=== PATIENT | male | born 1965 | race Caucasian/White ===

== ENCOUNTER 2016-10-12 13:16 | Inpatient (IN) | payer BC ==
[~2016-10-12] VITALS: Ht 182.9 cm; Wt 73.2 kg
--- NOTE | ~2016-10-12 | PR ---
[place], [place] PROGRESS NOTE [id number] UNIT #: [id number] ROOM: 408 DOCTOR: CATRACHITO WALLS MD BIRTHDATE: [birth year] DOS: 10/13/2016 SUBJECTIVE: The patient without anymore complaints of chest pains. OBJECTIVE: VITAL SIGNS: Blood pressure of 138/72, heart rate of 69 beats per minute, breathing 20 times per minute, temperature 98 degrees Fahrenheit. GENERAL APPEARANCE: The patient is alert and oriented x 3, in no visible distress. HEENT AND NECK: Exam within normal limits. CARDIOVASCULAR SYSTEM: Heart rate is regular in rate and rhythm. S1 and S2 normally audible. LUNGS: Clear to auscultation. ABDOMEN: Soft, nontender. No obvious organomegaly. Bowel sounds are present. EXTREMITIES: Without significant cyanosis or edema. IMPRESSION: 1. The patient for cardiac stress testing today. All his cardiac enzymes were normal. No complaints of chest pains. The patient remains on the rn family practice. 2. Bronchial asthma and acute asthmatoid wheezing and some shortness of breath for which he is being treated with Symbicort and azithromycin. CATRACHITO WALLS MD CM:ENRICO 2 21 CATRACHITO WALLS MD 10/13/161919 interface
--- NOTE | ~2016-10-12 | WRIGHTHP ---
[place], [place] PATIENT HISTORY AND PHYSICAL EXAM NAME: FRANNY MAJOR [facility] #: [id number] UNIT #: [id number] ROOM: 408 DOCTOR: CATRACHITO WALLS MD BIRTHDATE: [birth year] DOS: 10/12/2016 HISTORY OF PRESENT ILLNESS: The patient is a 51-year-old gentleman with a past medical history of bronchial asthma and nasal polyps. The patient presented to the Emergency Department with recurrent complaints of left-sided chest pain lasting for about half an hour and going away on its own. The patient presently has some slight discomfort in the left chest. No dizziness or palpitation, no nausea, vomiting or sweating. No fainting episodes. The patient has no previous history of coronary artery disease or [place] and no history of any coronary artery disease at an early age in his family, but his mother does have coronary artery disease which started later in her life. REVIEW OF SYSTEMS: LUNGS: History of bronchial asthma and wheezing, recurrent. GASTROINTESTINAL: No nausea, vomiting, diarrhea, constipation. CARDIOVASCULAR: Chest pains, other than that, no palpitations. ALLERGIES: KNOWN ALLERGIES TO PENICILLIN. SOCIAL HISTORY: The patient has a girlfriend. Denies smoking cigarettes, alcohol and drug abuse. FAMILY HISTORY: Noncontributory. PHYSICAL EXAMINATION: GENERAL APPEARANCE: The patient is alert and oriented x 3, in no visible distress. VITAL SIGNS: Blood pressure 141/86, heart rate of 73 beats per minute, breathing 20 times per minute, temperature 98 degrees Fahrenheit. HEENT AND NECK: Extraocular movements are intact. Sclerae are anicteric. Oral mucosa is moist and clean. No obvious facial weakness. Neck is supple without any lymphadenopathy. No thyromegaly. No JVD. No carotid arterial bruits. LUNGS: Expiratory wheezing on lung auscultation. CARDIOVASCULAR SYSTEM: Heart rate is regular in rate and rhythm. S1 and S2 normally audible. No significant murmur or any other abnormal cardiac sounds. ABDOMEN: Soft, nontender. No obvious organomegaly. Bowel sounds are present. No obvious herniation. EXTREMITIES: Without significant cyanosis or edema. Warm to touch. CENTRAL NERVOUS SYSTEM: Alert and oriented x 3. Cranial nerves II-XII are intact. Speech is normal. The patient is able to move all extremities. Normal muscle strength. Deep tendon reflexes are equal on both sides. Plantars were downgoing. LABORATORY DATA: Chest x-ray with no acute process. Normal serum electrolytes. Normal CBC. IMPRESSION: 1. The patient presenting with atypical chest pains from uncertain etiology. He is not a high risk candidate for coronary artery disease, but because of recurrent symptoms, he has been admitted and scheduled for a cardiac stress test [place], [place] PATIENT HISTORY AND PHYSICAL EXAM NAME: FRANNY MAJOR UNIT #: [id number] ROOM: [facility] DOCTOR: KAVITA INIGUEZ,CATRACHITO Vee BIRTHDATE: [birth year] after checking his cardiac enzymes. Dr. Vega, the pulp and paper tester has been consulted. 2. Acute asthmatoid wheezing with some shortness of breath and wheezing and history of bronchial asthma to be treated with Symbicort, azithromycin and continue to follow closely. CATRACHITO WALLS MD CM:HISPHYS:PATIENT HISTORY AND PHYSICAL EXAMINATION [phone] CATRACHITO WALLS MD 11/15/16 1453 interface
--- NOTE | ~2016-10-12 | CON ---
[place], [place] REPORT OF CONSULTATION NAME: FRANNY MAJOR UNIT #: [id number] ROOM: 408 DOCTOR: TOREY QUINTANILLA MD BIRTHDATE: [birth year] DOS: 10/13/2016 HISTORY OF PRESENT ILLNESS: This is a 51-year-old -Citizen Of [place] man who has asthma, but has never had a COPD, any known coronary artery disease, hypertension, diabetes mellitus, stroke, cancer or any kidney problems. He has never smoked cigarettes and does not use alcoholic beverages. He works as a dispatcher and he is not very active and his mother had coronary artery disease and at the age 72. His cholesterol is said to be normal. He has not had any chest pain or palpitations with rest or exertion previously. Yesterday while sitting, he developed left lateral chest discomfort and/or sensation that would not let up. It was not aggravated by activity and there is no radiation of this feeling to the neck with arms. There was no accompanying nausea, sweating, loss of consciousness. He has not had any PND, orthopnea, or swelling of the lower extremity, does not hurt when he walks. HOME MEDICATIONS: Include Dulera and ProAir HFA. PHYSICAL EXAMINATION: GENERAL: This revealed the patient is healthy looking fairly muscular. He has no anemia, thyromegaly, finger clubbing. VITAL SIGNS: Pulse is regular at 70 beats per minute. JVP is normal, blood pressure is fine. HEART: Auscultation unremarkable. EXTREMITIES: He has no edema in the lower extremities. LUNGS: Breath sounds are fairly decent bilaterally with a few rhonchi here and there. ABDOMEN: Supple, nontender. LABORATORY DATA: An ECG showed normal sinus rhythm at 88 beats per minute and a left anterior hemiblock. His exercise stress Cardiolite study was performed. He had no chest pain while on the treadmill. No EKG changes were seen and there was some fixed defect still on the images but no abnormal wall motion with an LV ejection fraction 74%. IMPRESSION: This patient had atypical chest pain and his stress test is negative. Therefore, no further workup is warranted at this time. [place], [place] REPORT OF CONSULTATION NAME: FRANNY MAJOR UNIT #: [id number] ROOM: 408 DOCTOR: TOREY QUINTANILAL MD BIRTHDATE: [birth year] TOREY QUINTANILLA MD CM:CONSTR:REPORT OF CONSULTATION 1235 11/15/16 1458 interface
--- NOTE | ~2016-10-12 | ST ---
[place], [place] EXERCISE STRESS TEST REPORT NAME: FRANNY MAJOR [facility] #: [id number] UNIT #: [id number] ROOM: 408 DOCTOR: CATRACHITO WALLS MD BIRTHDATE: [birth year] DOS: 10/13/2016 TREADMILL TEST WITH NUCLEAR SCAN DESCRIPTION: The patient is a 51-year-old gentleman presently admitted to [facility] when he presented with complaints of left-sided chest pains. The patient is asymptomatic now. The patient was tested under standard Marshal protocol and he exercised for a total of 10 minutes reaching a peak heart rate of 165 beats per minute, which was 96% of the PMHR. Maximum blood pressure was 144 systolic over 76 diastolic. The patient's baseline EKG showed normal sinus rhythm at a heart rate of 81 beats per minute, normal cardiac axis, no significant ST-T abnormality. During the exercise and recovery phase, the patient did not develop any significant EKG abnormality compatible with myocardial ischemia. The patient did not complain of any chest pain. The test was stopped because of the patient's fatigue and that he had reached the targeted heart rate. The patient was injected with Cardiolite during the peak phase of exercise and the exercise of 1 more minute after the Cardiolite injection. IMPRESSION: 1. Normal EKG part of the treadmill test with Cardiolite at 96% predicted maximum heart rate. 2. Nuclear scan results will be reported separately by Cardiology later today. 3. No significant EKG abnormality. CATRACHITO WALLS MD CM:STRESS:EXERCISE STRESS TEST REPORT [id number] CATRACHITO WALLS MD
[~2016-10-12 13:16] MED LIST: ALBUTEROL2.5 MG/0.5 INH; CORDROL20 MG PO; LEVOFLOXACIN500 MG PO; NAPROSYN500 MG PO; NASONEX0.05 MG/AC NS; NORCO 325 MG-51 TAB PO; PREDNICOT20 MG PO; PREDNISONE20 MG PO; PROAIR HFA0.09 MG/AC IH; PULMICORT RESP0.5 MG INH; VENTOLIN 02.5 MG/3 M INH
[2016-10-12 13:20] VITALS: BP 138/78
[2016-10-12 13:56] LABS: BASO % 0.5 % (0.0-1.0); EOS # 0.6 10*3/uL (0.0-0.4); EOS % 8.1 % (1.0-4.0); HEMATOCRIT 44.5 % (42.0-52.0); HEMOGLOBIN 14.4 g/dl (14.0-18.0); LYMPH # 1.4 10*3/uL (1.3-4.4); LYMPH % 18.8 % (27.0-41.0); MEAN CELL VOLUME 86.4 fl (80.0-94.0); MEAN CORPUSCULAR HGB CONC 32.4 g/dl (33.0-37.0); MEAN PLATELET VOLUME 10.6 fl (9.6-12.3); MONO # 0.6 10*3/uL (0.1-1.0); MONO % 7.6 % (3.0-9.0); NEUT # 4.9 10*3/uL (2.3-7.9); NEUT % 64.5 % (47.0-73.0); PLATELET COUNT AUTOMATED 228 10*3/uL (130-400); RED BLOOD COUNT 5.15 10*6/uL (4.50-5.90); RED CELL DISTRI WIDTH 14.2 % (0-14.5); WHITE BLOOD COUNT 7.7 10*3/uL (4.8-10.8)
[2016-10-12 14:08] LABS: PROTHROMBIN TIME 10.4 SECONDS (9.0-12.4)
[2016-10-12 14:13] LABS: ALBUMIN 3.6 gm/dl (3.1-4.5); ALKALINE PHOSPHATASE 82 U/L (45-117); BILIRUBIN, TOTAL 0.2 mg/dl (0.2-1.0); BUN 19 mg/dl (7-24); CARBON DIOXIDE 25 mmol/L (21-32); CHLORIDE 108 mmol/L (98-107); CKMB 0.6 ng/ml (0.5-3.6); CPK 109 U/L (39-308); EST GLOM FILT AFRICAN AMERICAN > 60 ml/min; GLUCOSE 94 mg/dL (65-99); LDH 127 U/L (87-241); MAGNESIUM 2.3 mg/dL (1.5-2.1); POTASSIUM 3.8 mmol/L (3.5-5.1); SGOT/AST 9 IU/L (3-35); SGPT/ALT 17 U/L (12-78); SODIUM 143 mmol/L (136-145); TOTAL PROTEIN 7.6 gm/dL (6.4-8.2)
[2016-10-12 14:18] LABS: TROPONIN I < 0.015 ng/ml (<0.5)
[2016-10-12 15:20] VITALS: BP 132/79
[2016-10-12 16:00] VITALS: BP 141/86
[2016-10-12 20:00] VITALS: BP 116/71
[2016-10-13] VITALS: BP 117/74
[2016-10-13 08:00] VITALS: BP 138/72
[2016-10-13] MEDS ORDERED: DULE1ARO INH (09:23)
[2016-10-13 12:00] VITALS: BP 111/75
== END 2016-10-13 15:40 | disposition home or self-care (01) | DRG 313 ==
LOC: ED 13:16 → EDHOLD 14:25 → 4E 14:55
PROVIDERS: Internal Medicine
DX: R07.89 Other chest pain (principal); J45.909 Unspecified asthma, uncomplicated; Z88.0 Allergy status to penicillin

== ENCOUNTER 2017-11-16 18:21 | Emergency (ER) | payer BC ==
[~2017-11-16] VITALS: Ht 182.8 cm; Wt 78.9 kg
[~2017-11-16 18:21] MED LIST changes: +DULE1ARO INH
[2017-11-16 18:27] VITALS: BP 143/92
[2017-11-16 19:09] LABS: BASO # 0.1 10*3/uL (0.0-0.1); BASO % 0.8 % (0.0-1.0); EOS % 10.3 % (1.0-4.0); HEMATOCRIT 45.7 % (42.0-52.0); HEMOGLOBIN 14.7 g/dl (14.0-18.0); LYMPH % 21.6 % (27.0-41.0); MEAN CELL VOLUME 87.5 fl (80.0-94.0); MEAN CORPUSCULAR HGB 28.2 pg (27.0-31.0); MEAN CORPUSCULAR HGB CONC 32.2 g/dl (33.0-37.0); MEAN PLATELET VOLUME 10.4 fl (9.6-12.3); MONO # 0.7 10*3/uL (0.1-1.0); MONO % 7.2 % (3.0-9.0); NEUT # 5.5 10*3/uL (2.3-7.9); NEUT % 59.6 % (47.0-73.0); PLATELET COUNT AUTOMATED 236 10*3/uL (130-400); RED BLOOD COUNT 5.22 10*6/uL (4.50-5.90); RED CELL DISTRI WIDTH 14.1 % (0-14.5); WHITE BLOOD COUNT 9.3 10*3/uL (4.8-10.8)
[2017-11-16 19:26] LABS: ALBUMIN 3.9 gm/dl (3.1-4.5); BUN 19 mg/dl (7-24); CHLORIDE 105 mmol/L (98-107); CREATININE 1.03 mg/dL (0.70-1.30); POTASSIUM 3.7 mmol/L (3.5-5.1); SGOT/AST 17 IU/L (3-35); SGPT/ALT 30 U/L (12-78); SODIUM 141 mmol/L (136-145)
[2017-11-16 19:29] LABS: ALKALINE PHOSPHATASE 80 U/L (45-117)
[2017-11-16] MEDS ORDERED: ZITHROMAX250 MG PO (19:38)
== END 2017-11-16 19:41 | disposition home or self-care (01) ==
LOC: ED 18:21
PROVIDERS: Physician Assistant
DX: J18.1 Lobar pneumonia, unspecified organism (principal); J45.909 Unspecified asthma, uncomplicated; Z88.0 Allergy status to penicillin

== ENCOUNTER 2017-11-22 17:46 | Inpatient (IN) | payer BC ==
[~2017-11-22] VITALS: Ht 182.8 cm; Wt 78.9 kg
[~2017-11-22 17:46] MED LIST changes: +ZITHROMAX250 MG PO
[2017-11-22 17:51] VITALS: BP 141/78
[2017-11-22 19:35] VITALS: BP 143/87
[2017-11-22 20:15] VITALS: BP 147/83
[2017-11-22 20:36] LABS: BASO # 0.1 10*3/uL (0.0-0.1); BASO % 0.9 % (0.0-1.0); EOS # 0.8 10*3/uL (0.0-0.4); EOS % 7.9 % (1.0-4.0); HEMATOCRIT 46.9 % (42.0-52.0); HEMOGLOBIN 15.2 g/dl (14.0-18.0); LYMPH # 1.4 10*3/uL (1.3-4.4); LYMPH % 13.8 % (27.0-41.0); MEAN CELL VOLUME 86.5 fl (80.0-94.0); MEAN CORPUSCULAR HGB CONC 32.4 g/dl (33.0-37.0); MEAN PLATELET VOLUME 10.8 fl (9.6-12.3); MONO # 0.4 10*3/uL (0.1-1.0); MONO % 4.4 % (3.0-9.0); NEUT # 7.3 10*3/uL (2.3-7.9); NEUT % 72.3 % (47.0-73.0); PLATELET COUNT AUTOMATED 239 10*3/uL (130-400); RED BLOOD COUNT 5.42 10*6/uL (4.50-5.90); RED CELL DISTRI WIDTH 14.3 % (0-14.5); WHITE BLOOD COUNT 10.1 10*3/uL (4.8-10.8)
[2017-11-22 20:51] LABS: ALKALINE PHOSPHATASE 93 U/L (45-117); BUN 20 mg/dl (7-24); CHLORIDE 107 mmol/L (98-107); CREATININE 1.03 mg/dL (0.70-1.30); POTASSIUM 3.9 mmol/L (3.5-5.1); SGOT/AST 20 IU/L (3-35); SGPT/ALT 33 U/L (12-78); SODIUM 141 mmol/L (136-145); TOTAL PROTEIN 7.9 gm/dL (6.4-8.2)
[2017-11-22 20:59] VITALS: BP 145/80
[2017-11-22 21:00] VITALS: BP 145/80
[2017-11-23] VITALS: BP 137/83; BP 150/78
[2017-11-23 06:02] LABS: BASO % 0.2 % (0.0-1.0); EOS % 0.1 % (1.0-4.0); HEMOGLOBIN 14.7 g/dl (14.0-18.0); LYMPH % 8.2 % (27.0-41.0); MEAN CELL VOLUME 85.8 fl (80.0-94.0); MEAN CORPUSCULAR HGB 28.7 pg (27.0-31.0); MEAN CORPUSCULAR HGB CONC 33.4 g/dl (33.0-37.0); MEAN PLATELET VOLUME 10.7 fl (9.6-12.3); MONO # 0.1 10*3/uL (0.1-1.0); MONO % 0.9 % (3.0-9.0); NEUT # 10.6 10*3/uL (2.3-7.9); NEUT % 89.8 % (47.0-73.0); PLATELET COUNT AUTOMATED 235 10*3/uL (130-400); RED BLOOD COUNT 5.13 10*6/uL (4.50-5.90); WHITE BLOOD COUNT 11.8 10*3/uL (4.8-10.8)
[2017-11-23 06:12] LABS: ALBUMIN 3.5 gm/dl (3.1-4.5); ALKALINE PHOSPHATASE 71 U/L (45-117); BUN 14 mg/dl (7-24); CHLORIDE 107 mmol/L (98-107); CHOLESTEROL 193 mg/dL (<200); CREATININE 1.06 mg/dL (0.70-1.30); HDL CHOLESTEROL 52 mg/dl (40-60); LDL CHOLESTEROL 128 mg/dL (9-159); PHOSPHOROUS 2.8 mg/dL (2.5-4.9); POTASSIUM 3.8 mmol/L (3.5-5.1); SGOT/AST 12 IU/L (3-35); SGPT/ALT 28 U/L (12-78); SODIUM 140 mmol/L (136-145); TOTAL PROTEIN 7.2 gm/dL (6.4-8.2); TRIGLYCERIDES 63 mg/dl (<150); VLDL CHOLESTEROL 13 mg/dL (6-40)
[2017-11-23 06:18] LABS: FREE T4 0.92 ng/dl (0.76-1.46); THYROID STIM HORMONE (HS) 0.208 uIU/ml (0.358-4.75)
[2017-11-23 07:29] LABS: VITAMIN D, 25-HYDROXY 27.2 ng/mL (30-100)
[2017-11-23 08:00] VITALS: BP 124/80
[2017-11-23 12:00] VITALS: BP 108/70
[2017-11-23 16:00] VITALS: BP 125/71
[2017-11-23 20:00] VITALS: BP 120/62
[2017-11-24] VITALS: BP 112/58
[2017-11-24 07:29] LABS: HEMATOCRIT 40.3 % (42.0-52.0); HEMOGLOBIN 13.5 g/dl (14.0-18.0); MEAN CELL VOLUME 86.7 fl (80.0-94.0); MEAN CORPUSCULAR HGB CONC 33.5 g/dl (33.0-37.0); PLATELET COUNT AUTOMATED 215 10*3/uL (130-400); RED BLOOD COUNT 4.65 10*6/uL (4.50-5.90); RED CELL DISTRI WIDTH 14.6 % (0-14.5); WHITE BLOOD COUNT 24.3 10*3/uL (4.8-10.8)
[2017-11-24 07:45] LABS: CHLORIDE 107 mmol/L (98-107); POTASSIUM 3.9 mmol/L (3.5-5.1); SODIUM 141 mmol/L (136-145)
[2017-11-24 07:50] LABS: BUN 23 mg/dl (7-24); CREATININE 1.18 mg/dL (0.70-1.30)
[2017-11-24 08:00] VITALS: BP 124/66
[2017-11-24 08:04] LABS: TOTAL CELLS COUNTED 100 #CELLS
[2017-11-24 08:05] LABS: PLATELET SUFFICIENCY NORMAL (NORMAL)
[2017-11-24 12:00] VITALS: BP 112/65; BP 126/55
[2017-11-24 16:00] VITALS: BP 122/65
[2017-11-24 20:00] VITALS: BP 127/63
[2017-11-25 00:08] VITALS: BP 110/56
[2017-11-25 07:12] LABS: HEMATOCRIT 39.8 % (42.0-52.0); HEMOGLOBIN 13.3 g/dl (14.0-18.0); MEAN CELL VOLUME 86.9 fl (80.0-94.0); MEAN CORPUSCULAR HGB CONC 33.4 g/dl (33.0-37.0); MEAN PLATELET VOLUME 10.8 fl (9.6-12.3); PLATELET COUNT AUTOMATED 211 10*3/uL (130-400); RED BLOOD COUNT 4.58 10*6/uL (4.50-5.90); RED CELL DISTRI WIDTH 14.9 % (0-14.5)
[2017-11-25 07:30] LABS: CHLORIDE 106 mmol/L (98-107); POTASSIUM 3.6 mmol/L (3.5-5.1); SODIUM 141 mmol/L (136-145)
[2017-11-25 07:35] LABS: BUN 19 mg/dl (7-24); CREATININE 0.92 mg/dL (0.70-1.30)
[2017-11-25 07:44] LABS: ATYPICAL LYMPHS 1 % (0-0); TOTAL CELLS COUNTED 100 #CELLS
[2017-11-25 07:45] LABS: PLATELET SUFFICIENCY NORMAL (NORMAL)
[2017-11-25 08:00] VITALS: BP 130/68
[2017-11-25] MEDS ORDERED: LEVOFLOXACIN500 MG PO (11:38)
[2017-11-25] MEDS ORDERED: NEBULIZER DEVI (11:38)
[2017-11-25] MEDS ORDERED: PROAIR HFA8.5 GM INH (11:38)
[2017-11-25] MEDS ORDERED: VITAMIN D-32000 UNIT PO (11:38)
[2017-11-25] MEDS ORDERED: DULE1ARO1 INH (11:38)
[2017-11-25] MEDS ORDERED: PREDNISONE10 MG PO (11:38)
== END 2017-11-25 13:01 | disposition home or self-care (01) | DRG 871 ==
LOC: ED 17:46 → 5E 20:14 → EDHOLD 20:14 → 5E 20:37
PROVIDERS: Internal Medicine; Internal Medicine Nephrology; Physician Assistant
DX: A41.9 Sepsis, unspecified organism (principal); J18.1 Lobar pneumonia, unspecified organism; J45.901 Unspecified asthma with (acute) exacerbation; R03.0 Elevated blood-pressure reading, without diagnosis of hypertension; D64.9 Anemia, unspecified; E55.9 Vitamin D deficiency, unspecified; Z88.0 Allergy status to penicillin; Z79.2 Long term (current) use of antibiotics; Z79.899 Other long term (current) drug therapy; Z82.5 Family history of asthma and other chronic lower respiratory diseases

== ENCOUNTER 2018-07-12 17:11 | Emergency (ER) | payer BC ==
[~2018-07-12] VITALS: Ht 182.8 cm; Wt 81.6 kg
[~2018-07-12 17:11] MED LIST changes: +DULE1ARO1 INH; +NEBULIZER DEVI; +PREDNISONE10 MG PO; +PROAIR HFA8.5 GM INH; +VITAMIN D-32000 UNIT PO
[2018-07-12 17:13] VITALS: BP 110/84
[2018-07-12] MEDS ORDERED: SEPTDS PO (17:30)
[2018-07-12] MEDS ORDERED: PREDNISONE20 M1 PO (17:30)
== END 2018-07-12 17:46 | disposition home or self-care (01) ==
LOC: ED 17:11
DX: J33.9 Nasal polyp, unspecified (principal); Z88.0 Allergy status to penicillin

== ENCOUNTER 2019-02-08 19:43 | Emergency (ER) | payer BC ==
[~2019-02-08] VITALS: Ht 182.8 cm; Wt 86.6 kg
[~2019-02-08 19:43] MED LIST changes: +PREDNISONE20 M1 PO; +SEPTDS PO
[2019-02-08] MEDS ORDERED: ARNUITY ELLIPT50 MCG INH (19:48)
[2019-02-08] MEDS ORDERED: SYMB160 INH (19:49)
[2019-02-08 20:49] LABS: BASO # 0.1 10*3/uL (0.0-0.1); BASO % 0.8 % (0.0-1.0); EOS # 0.6 10*3/uL (0.0-0.4); EOS % 7.4 % (1.0-4.0); HEMATOCRIT 45.5 % (42.0-52.0); HEMOGLOBIN 14.7 g/dl (14.0-18.0); LYMPH # 1.6 10*3/uL (1.3-4.4); LYMPH % 19.3 % (27.0-41.0); MEAN CELL VOLUME 88.5 fl (80.0-94.0); MEAN CORPUSCULAR HGB 28.6 pg (27.0-31.0); MEAN CORPUSCULAR HGB CONC 32.3 g/dl (33.0-37.0); MEAN PLATELET VOLUME 10.5 fl (9.6-12.3); MONO # 0.8 10*3/uL (0.1-1.0); MONO % 9.2 % (3.0-9.0); NEUT # 5.2 10*3/uL (2.3-7.9); NEUT % 62.9 % (47.0-73.0); PLATELET COUNT AUTOMATED 256 10*3/uL (130-400); RED BLOOD COUNT 5.14 10*6/uL (4.50-5.90); RED CELL DISTRI WIDTH 13.4 % (0-14.5); WHITE BLOOD COUNT 8.3 10*3/uL (4.8-10.8)
[2019-02-08 21:05] LABS: ALBUMIN 3.6 gm/dl (3.1-4.5); ALKALINE PHOSPHATASE 94 U/L (45-117); BUN 14 mg/dl (7-24); CHLORIDE 110 mmol/L (98-107); CREATININE 1.08 mg/dL (0.70-1.30); POTASSIUM 3.5 mmol/L (3.5-5.1); SGOT/AST 11 IU/L (3-35); SGPT/ALT 22 U/L (12-78); SODIUM 143 mmol/L (136-145); TOTAL PROTEIN 7.8 gm/dL (6.4-8.2)
[2019-02-08 22:50] VITALS: BP 135/80
== END 2019-02-08 22:50 | disposition home or self-care (01) ==
LOC: ED 19:43
PROVIDERS: Physician Assistant
DX: B27.90 Infectious mononucleosis, unspecified without complication (principal); M25.511 Pain in right shoulder; M25.512 Pain in left shoulder; M54.2 Cervicalgia; M79.641 Pain in right hand; M79.642 Pain in left hand; M25.551 Pain in right hip; R53.83 Other fatigue; J02.9 Acute pharyngitis, unspecified; Z88.0 Allergy status to penicillin; Z79.899 Other long term (current) drug therapy

== ENCOUNTER 2019-11-14 16:31 | Emergency (ER) | payer BC ==
[~2019-11-14] VITALS: Ht 182.8 cm; Wt 84.4 kg
[~2019-11-14 16:31] MED LIST changes: +ARNUITY ELLIPT50 MCG INH; +SYMB160 INH
[2019-11-14 16:35] VITALS: BP 148/94
[2019-11-14] MEDS ORDERED: PREDNISONE20 M1 PO (17:27)
== END 2019-11-14 17:45 | disposition home or self-care (01) ==
LOC: ED 16:31
DX: J33.9 Nasal polyp, unspecified (principal); Z88.0 Allergy status to penicillin

== ENCOUNTER 2019-12-01 19:07 | Emergency (ER) | payer BC ==
[~2019-12-01] VITALS: Ht 182.8 cm; Wt 81.6 kg
[2019-12-01 19:17] VITALS: BP 124/79
[2019-12-01] MEDS ORDERED: DOXYCYCLINE100 M3 PO (19:31)
[2019-12-01] MEDS ORDERED: FLONASE ALLERG9.9 ML NAS (19:31)
[2019-12-01] MEDS ORDERED: PREDNISONE20 M1 PO (19:31)
== END 2019-12-01 19:45 | disposition home or self-care (01) ==
LOC: ED 19:07
DX: J33.9 Nasal polyp, unspecified (principal); J45.909 Unspecified asthma, uncomplicated; Z88.0 Allergy status to penicillin; Z79.899 Other long term (current) drug therapy

== ENCOUNTER 2019-12-31 13:54 | Emergency (ER) | payer BC ==
[~2019-12-31] VITALS: Ht 182.8 cm; Wt 79.8 kg
[~2019-12-31 13:54] MED LIST changes: +DOXYCYCLINE100 M3 PO; +FLONASE ALLERG9.9 ML NAS
[2019-12-31 14:54] LABS: BASO # 0.1 10*3/uL (0.0-0.1); EOS # 0.9 10*3/uL (0.0-0.4); EOS % 13.3 % (1.0-4.0); HEMATOCRIT 44.1 % (42.0-52.0); HEMOGLOBIN 13.8 g/dl (14.0-18.0); LYMPH # 1.6 10*3/uL (1.3-4.4); MEAN CORPUSCULAR HGB 28.2 pg (27.0-31.0); MEAN CORPUSCULAR HGB CONC 31.3 g/dl (33.0-37.0); MEAN PLATELET VOLUME 10.1 fl (9.6-12.3); MONO # 0.7 10*3/uL (0.1-1.0); MONO % 10.6 % (3.0-9.0); NEUT # 3.6 10*3/uL (2.3-7.9); NEUT % 51.8 % (47.0-73.0); PLATELET COUNT AUTOMATED 188 10*3/uL (130-400); RED CELL DISTRI WIDTH 13.7 % (0-14.5)
[2019-12-31 15:09] LABS: ALBUMIN 3.6 gm/dl (3.1-4.5); ALKALINE PHOSPHATASE 85 U/L (45-117); BUN 18 mg/dl (7-24); CHLORIDE 112 mmol/L (98-107); CREATININE 0.94 mg/dL (0.70-1.30); POTASSIUM 3.3 mmol/L (3.5-5.1); SGOT/AST 18 IU/L (3-35); SGPT/ALT 52 U/L (12-78); SODIUM 142 mmol/L (136-145); TOTAL PROTEIN 7.3 gm/dL (6.4-8.2)
[2019-12-31 15:11] LABS: TROPONIN I < 0.015 ng/ml (<0.045)
[2019-12-31] MEDS ORDERED: PROAIR HFA8.5 GM INH (15:51)
[2019-12-31] MEDS ORDERED: PREDNISONE50 MG PO (15:51)
[2019-12-31 16:10] VITALS: BP 124/76
== END 2019-12-31 16:01 | disposition home or self-care (01) ==
LOC: ED 13:54
PROVIDERS: Nurse Practitioner Family
DX: J45.901 Unspecified asthma with (acute) exacerbation (principal); Z88.0 Allergy status to penicillin; Z79.2 Long term (current) use of antibiotics; Z79.899 Other long term (current) drug therapy; Z98.890 Other specified postprocedural states

== ENCOUNTER 2020-01-31 19:47 | Emergency (ER) | payer BC ==
[~2020-01-31] VITALS: Ht 182.8 cm; Wt 81.6 kg
[~2020-01-31 19:47] MED LIST changes: +PREDNISONE50 MG PO
[2020-01-31 21:36] LABS: BASO # 0.1 10*3/uL (0.0-0.1); BASO % 0.9 % (0.0-1.0); EOS # 1.5 10*3/uL (0.0-0.4); EOS % 14.1 % (1.0-4.0); HEMATOCRIT 44.9 % (42.0-52.0); LYMPH # 2.1 10*3/uL (1.3-4.4); LYMPH % 20.9 % (27.0-41.0); MEAN CELL VOLUME 86.8 fl (80.0-94.0); MEAN CORPUSCULAR HGB 28.6 pg (27.0-31.0); MEAN PLATELET VOLUME 10.3 fl (9.6-12.3); MONO % 9.3 % (3.0-9.0); NEUT # 5.6 10*3/uL (2.3-7.9); NEUT % 54.4 % (47.0-73.0); PLATELET COUNT AUTOMATED 230 10*3/uL (130-400); RED BLOOD COUNT 5.17 10*6/uL (4.50-5.90); WHITE BLOOD COUNT 10.3 10*3/uL (4.8-10.8)
[2020-01-31 21:51] LABS: ALBUMIN 3.4 gm/dl (3.1-4.5); ALKALINE PHOSPHATASE 74 U/L (45-117); BUN 20 mg/dl (7-24); CHLORIDE 115 mmol/L (98-107); CREATININE 1.15 mg/dL (0.70-1.30); SGOT/AST 16 IU/L (3-35); SGPT/ALT 26 U/L (12-78); SODIUM 145 mmol/L (136-145); TOTAL PROTEIN 7.1 gm/dL (6.4-8.2)
[2020-01-31 23:56] VITALS: BP 136/88
[2020-02-01] MEDS ORDERED: FLONASE ALLERG9.9 ML NAS (00:52)
[2020-02-01] MEDS ORDERED: VIBRAMYCIN100 MG PO (00:52)
[2020-02-01] MEDS ORDERED: PREDNISONE10 M1 PO (00:52)
== END 2020-02-01 01:42 | disposition home or self-care (01) ==
LOC: ED 19:47
PROVIDERS: Emergency Medicine
DX: J45.901 Unspecified asthma with (acute) exacerbation (principal); J33.9 Nasal polyp, unspecified; J32.9 Chronic sinusitis, unspecified; Z88.0 Allergy status to penicillin; Z79.899 Other long term (current) drug therapy; Z79.2 Long term (current) use of antibiotics

== ENCOUNTER 2020-07-24 17:01 | Emergency (ER) | payer BC ==
[~2020-07-24] VITALS: Ht 180.3 cm; Wt 82.6 kg
[~2020-07-24 17:01] MED LIST changes: +PREDNISONE10 M1 PO; +VIBRAMYCIN100 MG PO
[2020-07-24 17:37] VITALS: BP 129/88
[2020-07-24] MEDS ORDERED: CEPHALEXIN500 M1 PO (18:13)
[2020-07-24] MEDS ORDERED: MEDROL DOSEPAK4 MG PO (18:13)
[2020-07-24] MEDS ORDERED: PROAIR HFA8.5 GM INH (18:21)
== END 2020-07-24 18:19 | disposition home or self-care (01) ==
LOC: ED 17:01
DX: J01.00 Acute maxillary sinusitis, unspecified (principal); J45.909 Unspecified asthma, uncomplicated; F41.9 Anxiety disorder, unspecified; Z79.899 Other long term (current) drug therapy; Z88.0 Allergy status to penicillin

== ENCOUNTER 2020-09-15 22:12 | Emergency (ER) | payer BC ==
[~2020-09-15] VITALS: Ht 180.3 cm; Wt 79.4 kg
[~2020-09-15 22:12] MED LIST changes: +CEPHALEXIN500 M1 PO; +MEDROL DOSEPAK4 MG PO
[2020-09-15 22:40] VITALS: BP 134/82
[2020-09-15 22:59] LABS: BASO % 0.3 % (0.0-1.0); EOS # 0.2 10*3/uL (0.0-0.4); EOS % 1.6 % (1.0-4.0); HEMATOCRIT 43.5 % (42.0-52.0); LYMPH # 2.6 10*3/uL (1.3-4.4); LYMPH % 21.8 % (27.0-41.0); MEAN CELL VOLUME 85.5 fl (80.0-94.0); MEAN CORPUSCULAR HGB 27.5 pg (27.0-31.0); MEAN CORPUSCULAR HGB CONC 32.2 g/dl (33.0-37.0); MEAN PLATELET VOLUME 10.2 fl (9.6-12.3); MONO # 0.8 10*3/uL (0.1-1.0); MONO % 6.5 % (3.0-9.0); NEUT % 68.3 % (47.0-73.0); PLATELET COUNT AUTOMATED 196 10*3/uL (130-400); RED BLOOD COUNT 5.09 10*6/uL (4.50-5.90); RED CELL DISTRI WIDTH 13.2 % (0-14.5); WHITE BLOOD COUNT 11.8 10*3/uL (4.8-10.8)
[2020-09-15 23:16] LABS: BUN 21 mg/dl (7-24); CHLORIDE 110 mmol/L (98-107); POTASSIUM 3.3 mmol/L (3.5-5.1); SODIUM 144 mmol/L (136-145)
[2020-09-15 23:18] LABS: TROPONIN I < 0.015 ng/ml (<0.045)
== END 2020-09-16 00:09 | disposition home or self-care (01) ==
LOC: ED 22:12
PROVIDERS: Internal Medicine
DX: I47.1 Supraventricular tachycardia (principal); E87.6 Hypokalemia; N18.30 Chronic kidney disease, stage 3 unspecified; Z88.0 Allergy status to penicillin

== ENCOUNTER → 2020-10-06 | Outpatient (CLI) | payer OTHER ==
[~2020-10-06] MED LIST changes: +ADV 100/50 INH; +ANORO ELLIPTA1 EACH INH; +LEVOFLOXACIN750 M2 PO
== END ==
LOC: CARD 07:53
PROVIDERS: ATTEND Family Medicine
DX: I47.1 Supraventricular tachycardia (principal)

== ENCOUNTER → 2020-11-06 | Outpatient (CLI) | payer OTHER | END | disposition home or self-care (01) | LOC: CARD 12:40 | PROVIDERS: ATTEND Internal Medicine Cardiovascular Disease | DX: I51.7 Cardiomegaly (principal) ==

== ENCOUNTER 2020-11-11 19:41 | Observation (INO) | payer OTHER ==
[~2020-11-11] VITALS: Ht 182.8 cm; Wt 85.0 kg
[~2020-11-11 19:41] MED LIST changes: -ADV 100/50 INH; -ANORO ELLIPTA1 EACH INH; -LEVOFLOXACIN750 M2 PO
[2020-11-11 20:03] VITALS: BP 139/87
[2020-11-11 20:39] LABS: BASO # 0.1 10*3/uL (0.0-0.1); BASO % 0.7 % (0.0-1.0); EOS # 1.1 10*3/uL (0.0-0.4); EOS % 10.9 % (1.0-4.0); HEMATOCRIT 45.2 % (42.0-52.0); LYMPH # 1.7 10*3/uL (1.3-4.4); MEAN CELL VOLUME 85.4 fl (80.0-94.0); MEAN CORPUSCULAR HGB 28.4 pg (27.0-31.0); MEAN CORPUSCULAR HGB CONC 33.2 g/dl (33.0-37.0); MEAN PLATELET VOLUME 9.8 fl (9.6-12.3); MONO # 0.9 10*3/uL (0.1-1.0); MONO % 8.5 % (3.0-9.0); NEUT # 6.3 10*3/uL (2.3-7.9); NEUT % 62.5 % (47.0-73.0); PLATELET COUNT AUTOMATED 215 10*3/uL (130-400); RED BLOOD COUNT 5.29 10*6/uL (4.50-5.90)
[2020-11-11 20:54] LABS: ALBUMIN 3.6 gm/dl (3.1-4.5); ALKALINE PHOSPHATASE 71 U/L (45-117); BUN 19 mg/dl (7-24); CHLORIDE 108 mmol/L (98-107); CREATININE 1.07 mg/dL (0.70-1.30); POTASSIUM 3.8 mmol/L (3.5-5.1); SGOT/AST 7 IU/L (3-35); SGPT/ALT 22 U/L (12-78); SODIUM 138 mmol/L (136-145); TOTAL PROTEIN 7.6 gm/dL (6.4-8.2)
[2020-11-11 21:05] VITALS: BP 148/86
[2020-11-12] VITALS: BP 119/78
[2020-11-12 02:15] VITALS: BP 136/70
[2020-11-12 02:45] VITALS: BP 119/78
[2020-11-12] MEDS ORDERED: ADV 100/50 INH ×2 (04:28→12:06)
[2020-11-12 06:38] LABS: HEMATOCRIT 45.8 % (42.0-52.0); MEAN CELL VOLUME 87.4 fl (80.0-94.0); MEAN CORPUSCULAR HGB 27.9 pg (27.0-31.0); MEAN CORPUSCULAR HGB CONC 31.9 g/dl (33.0-37.0); MEAN PLATELET VOLUME 10.6 fl (9.6-12.3); PLATELET COUNT AUTOMATED 218 10*3/uL (130-400); RED BLOOD COUNT 5.24 10*6/uL (4.50-5.90); WHITE BLOOD COUNT 6.3 10*3/uL (4.8-10.8)
[2020-11-12 06:48] LABS: BUN 18 mg/dl (7-24); CHLORIDE 111 mmol/L (98-107); CREATININE 1.02 mg/dL (0.70-1.30); POTASSIUM 3.7 mmol/L (3.5-5.1); SODIUM 139 mmol/L (136-145)
[2020-11-12 07:57] LABS: ATYPICAL LYMPHS 1 % (0-0); BASOPHILS 1 % (0-1); PLATELET SUFFICIENCY NORMAL (NORMAL); TOTAL CELLS COUNTED 100 #CELLS
[2020-11-12 08:00] VITALS: BP 130/79
[2020-11-12 12:00] VITALS: BP 133/78
[2020-11-12] MEDS ORDERED: PREDNISONE50 MG PO (12:06)
[2020-11-12] MEDS ORDERED: PROAIR HFA8.5 GM INH (12:06)
[2020-11-12] MEDS ORDERED: ANORO ELLIPTA1 EACH INH (12:06)
[2020-11-12] MEDS ORDERED: PREDNISONE10 MG PO (12:06)
[2020-11-12] MEDS ORDERED: LEVOFLOXACIN750 M2 PO (13:19)
== END 2020-11-12 13:45 | disposition home or self-care (01) ==
LOC: ED 19:41 → EDHOLD 11-12 00:51 → 4E 11-12 02:09
PROVIDERS: Emergency Medicine; Student in an Organized Health Care Education/Training Program; ADMIT Internal Medicine; ATTEND Internal Medicine
DX: A41.9 Sepsis, unspecified organism (principal); R65.10 Systemic inflammatory response syndrome (SIRS) of non-infectious origin without acute organ dysfunction; J45.901 Unspecified asthma with (acute) exacerbation; J18.9 Pneumonia, unspecified organism; Z20.822 Contact with and (suspected) exposure to COVID-19; E44.0 Moderate protein-calorie malnutrition; J33.9 Nasal polyp, unspecified; D64.9 Anemia, unspecified; E55.9 Vitamin D deficiency, unspecified

== ENCOUNTER 2021-06-01 12:59 | Emergency (ER) | payer OTHER ==
[~2021-06-01] VITALS: Ht 180.3 cm; Wt 78.0 kg
[~2021-06-01 12:59] MED LIST changes: +ADV 100/50 INH; +ANORO ELLIPTA1 EACH INH; +LEVOFLOXACIN750 M2 PO
[2021-06-01 15:45] LABS: BASO # 0.1 10*3/uL (0.0-0.1); BASO % 1.1 % (0.0-1.0); EOS # 1.2 10*3/uL (0.0-0.4); EOS % 15.8 % (1.0-4.0); HEMATOCRIT 48.1 % (42.0-52.0); LYMPH # 1.5 10*3/uL (1.3-4.4); LYMPH % 20.1 % (27.0-41.0); MEAN CELL VOLUME 87.8 fl (80.0-94.0); MEAN CORPUSCULAR HGB 27.4 pg (27.0-31.0); MEAN CORPUSCULAR HGB CONC 31.2 g/dl (33.0-37.0); MEAN PLATELET VOLUME 10.3 fl (9.6-12.3); MONO # 0.8 10*3/uL (0.1-1.0); MONO % 10.7 % (3.0-9.0); NEUT # 3.9 10*3/uL (2.3-7.9); PLATELET COUNT AUTOMATED 228 10*3/uL (130-400); RED BLOOD COUNT 5.48 10*6/uL (4.50-5.90); RED CELL DISTRI WIDTH 14.5 % (0-14.5); WHITE BLOOD COUNT 7.5 10*3/uL (4.8-10.8)
[2021-06-01 16:01] LABS: ALBUMIN 3.6 gm/dl (3.1-4.5); ALKALINE PHOSPHATASE 75 U/L (45-117); BUN 14 mg/dl (7-24); CHLORIDE 111 mmol/L (98-107); CREATININE 1.04 mg/dL (0.70-1.30); LIPASE 126 U/L (73-393); POTASSIUM 3.9 mmol/L (3.5-5.1); SGOT/AST 15 IU/L (3-35); SGPT/ALT 25 U/L (12-78); SODIUM 141 mmol/L (136-145); TOTAL PROTEIN 7.5 gm/dL (6.4-8.2); TROPONIN I < 0.015 ng/ml (<0.045)
[2021-06-01] MEDS ORDERED: PREDNISONE10 MG PO (18:14)
== END 2021-06-01 18:18 | disposition home or self-care (01) ==
LOC: ED 12:59
PROVIDERS: Emergency Medicine
DX: J45.901 Unspecified asthma with (acute) exacerbation (principal); Z20.822 Contact with and (suspected) exposure to COVID-19; Z88.0 Allergy status to penicillin; Z79.2 Long term (current) use of antibiotics; Z79.899 Other long term (current) drug therapy; Z90.89 Acquired absence of other organs

== ENCOUNTER → 2021-06-12 | Outpatient (CLI) | payer OTHER | END | disposition home or self-care (01) | LOC: CT 14:13 | PROVIDERS: ATTEND Otolaryngology | DX: J32.9 Chronic sinusitis, unspecified (principal) ==

== ENCOUNTER 2021-07-20 19:01 | Inpatient (IN) | payer OTHER ==
[~2021-07-20] VITALS: Ht 181.6 cm; Wt 82.6 kg
[2021-07-20 19:10] VITALS: BP 158/83
[2021-07-20 19:34] VITALS: BP 132/80
[2021-07-20 19:35] LABS: BASO % 0.2 % (0.0-1.0); EOS # 0.1 10*3/uL (0.0-0.4); EOS % 0.4 % (1.0-4.0); HEMATOCRIT 44.2 % (42.0-52.0); LYMPH % 11.1 % (27.0-41.0); MEAN CELL VOLUME 87.4 fl (80.0-94.0); MEAN CORPUSCULAR HGB 28.3 pg (27.0-31.0); MEAN CORPUSCULAR HGB CONC 32.4 g/dl (33.0-37.0); MONO # 1.5 10*3/uL (0.1-1.0); NEUT # 14.4 10*3/uL (2.3-7.9); NEUT % 79.7 % (47.0-73.0); PLATELET COUNT AUTOMATED 248 10*3/uL (130-400); RED BLOOD COUNT 5.06 10*6/uL (4.50-5.90); RED CELL DISTRI WIDTH 14.9 % (0-14.5)
[2021-07-20 19:49] LABS: BUN 18 mg/dl (7-24); CHLORIDE 107 mmol/L (98-107); CREATININE 0.97 mg/dL (0.70-1.30); POTASSIUM 3.7 mmol/L (3.5-5.1); SODIUM 140 mmol/L (136-145)
[2021-07-20 22:23] VITALS: BP 137/85
[2021-07-21 02:13] VITALS: BP 132/82
[2021-07-21 06:08] VITALS: BP 113/72
[2021-07-21 06:09] LABS: BUN 17 mg/dl (7-24); CHLORIDE 105 mmol/L (98-107); CREATININE 0.86 mg/dL (0.70-1.30); POTASSIUM 3.8 mmol/L (3.5-5.1); SODIUM 138 mmol/L (136-145)
[2021-07-21 06:18] LABS: HEMATOCRIT 44.3 % (42.0-52.0); MEAN CORPUSCULAR HGB 28.1 pg (27.0-31.0); MEAN CORPUSCULAR HGB CONC 32.3 g/dl (33.0-37.0); MEAN PLATELET VOLUME 10.8 fl (9.6-12.3); PLATELET COUNT AUTOMATED 235 10*3/uL (130-400); RED BLOOD COUNT 5.09 10*6/uL (4.50-5.90); RED CELL DISTRI WIDTH 14.7 % (0-14.5); WHITE BLOOD COUNT 14.1 10*3/uL (4.8-10.8)
[2021-07-21 07:05] LABS: TOTAL CELLS COUNTED 100 #CELLS
[2021-07-21 07:08] LABS: BURR CELLS FEW; PLATELET SUFFICIENCY NORMAL (NORMAL)
[2021-07-21 08:30] VITALS: BP 135/70
[2021-07-21 12:00] VITALS: BP 113/61
[2021-07-21 16:00] VITALS: BP 117/70
[2021-07-21 20:00] VITALS: BP 120/70
[2021-07-22] VITALS: BP 113/70
[2021-07-22 06:29] LABS: HEMATOCRIT 42.7 % (42.0-52.0); MEAN CELL VOLUME 87.7 fl (80.0-94.0); MEAN CORPUSCULAR HGB 28.1 pg (27.0-31.0); MEAN CORPUSCULAR HGB CONC 32.1 g/dl (33.0-37.0); PLATELET COUNT AUTOMATED 254 10*3/uL (130-400); RED BLOOD COUNT 4.87 10*6/uL (4.50-5.90); RED CELL DISTRI WIDTH 14.8 % (0-14.5); WHITE BLOOD COUNT 19.9 10*3/uL (4.8-10.8)
[2021-07-22 06:31] LABS: BUN 20 mg/dl (7-24); CHLORIDE 107 mmol/L (98-107); CREATININE 0.93 mg/dL (0.70-1.30); POTASSIUM 4.4 mmol/L (3.5-5.1); SODIUM 139 mmol/L (136-145)
[2021-07-22 07:36] LABS: TOTAL CELLS COUNTED 100 #CELLS
[2021-07-22 07:37] LABS: BURR CELLS FEW; PLATELET SUFFICIENCY NORMAL (NORMAL); POLYCHROMASIA SLIGHT
[2021-07-22 08:00] VITALS: BP 123/80
[2021-07-22 12:00] VITALS: BP 116/76
[2021-07-22 16:00] VITALS: BP 131/75
[2021-07-22 20:00] VITALS: BP 133/89
[2021-07-23] VITALS: BP 120/81
[2021-07-23 08:00] VITALS: BP 123/73
[2021-07-23] MEDS ORDERED: PROAIR HFA8.5 GM INH (11:46)
[2021-07-23] MEDS ORDERED: Ipratropium Brom3 ML NEB (11:46)
[2021-07-23] MEDS ORDERED: PREDNISONE10 MG PO (11:46)
[2021-07-23] MEDS ORDERED: DOXYCYCLINE HY100 M3 PO (11:46)
== END 2021-07-23 12:40 | disposition home or self-care (01) | DRG 189 ==
LOC: ED 19:01 → EDHOLD 20:58 → 4E 20:58
PROVIDERS: Internal Medicine; Student in an Organized Health Care Education/Training Program; ADMIT Family Medicine; ATTEND Family Medicine
DX: J96.01 Acute respiratory failure with hypoxia (principal); J45.41 Moderate persistent asthma with (acute) exacerbation; R65.10 Systemic inflammatory response syndrome (SIRS) of non-infectious origin without acute organ dysfunction; J33.9 Nasal polyp, unspecified; R73.9 Hyperglycemia, unspecified; D64.9 Anemia, unspecified; Z88.0 Allergy status to penicillin; Z79.51 Long term (current) use of inhaled steroids; Z79.899 Other long term (current) drug therapy; Z82.49 Family history of ischemic heart disease and other diseases of the circulatory system

== ENCOUNTER → 2022-07-22 | Outpatient (CLI) | payer OTHER ==
[~2022-07-22] MED LIST changes: +DECADRON6 M1 PO; +DOXYCYCLINE HY100 M3 PO; +Ipratropium Brom3 ML NEB
[2022-07-22 15:49] LABS: BASO # 0.1 10*3/uL (0.0-0.1); BASO % 0.6 % (0.0-1.0); EOS # 0.6 10*3/uL (0.0-0.4); EOS % 6.5 % (1.0-4.0); HEMATOCRIT 47.6 % (42.0-52.0); LYMPH # 1.6 10*3/uL (1.3-4.4); LYMPH % 18.7 % (27.0-41.0); MEAN CELL VOLUME 85.6 fl (80.0-94.0); MEAN CORPUSCULAR HGB 27.7 pg (27.0-31.0); MEAN CORPUSCULAR HGB CONC 32.4 g/dl (33.0-37.0); MEAN PLATELET VOLUME 10.2 fl (9.6-12.3); MONO # 0.7 10*3/uL (0.1-1.0); MONO % 7.7 % (3.0-9.0); NEUT # 5.8 10*3/uL (2.3-7.9); NEUT % 65.9 % (47.0-73.0); PLATELET COUNT AUTOMATED 260 10*3/uL (130-400); RED BLOOD COUNT 5.56 10*6/uL (4.50-5.90); WHITE BLOOD COUNT 8.8 10*3/uL (4.8-10.8)
== END | disposition home or self-care (01) ==
LOC: LAB 15:31
PROVIDERS: ATTEND Internal Medicine Critical Care Medicine
DX: J45.40 Moderate persistent asthma, uncomplicated (principal); J30.9 Allergic rhinitis, unspecified; J33.0 Polyp of nasal cavity; J30.89 Other allergic rhinitis

== ENCOUNTER 2024-05-15 14:44 | Emergency (ER) | payer OTHER ==
[~2024-05-15] VITALS: Ht 182.8 cm; Wt 93.0 kg
[2024-05-15 14:50] VITALS: BP 149/83
[2024-05-15] MEDS ORDERED: NUCALA100 MG SQ (14:52)
[2024-05-15] MEDS ORDERED: TRELEGY ELLIPT1 EACH INH (14:52)
[2024-05-15] MEDS ORDERED: PAXLOVID 150-11 EAC2 PO (16:08)
== END 2024-05-15 16:12 | disposition home or self-care (01) ==
LOC: ED 14:44
DX: U07.1 COVID-19 (principal); J45.909 Unspecified asthma, uncomplicated; F41.9 Anxiety disorder, unspecified; Z88.0 Allergy status to penicillin; Z98.890 Other specified postprocedural states

== ENCOUNTER 2025-04-29 12:31 | Emergency (ER) | payer OTHER ==
[~2025-04-29] VITALS: Ht 182.8 cm; Wt 95.7 kg
[~2025-04-29 12:31] MED LIST changes: +NUCALA100 MG SQ; +PAXLOVID 150-11 EAC2 PO; +TRELEGY ELLIPT1 EACH INH
[2025-04-29 12:39] VITALS: BP 156/77
[2025-04-29] MEDS ORDERED: Albuterol Sulf/Ipratropium 3 ML VIAL NEB ONE (13:00)
[2025-04-29] MEDS ORDERED: AVPAK AZITHROM250 MG PO (15:17)
== END 2025-04-29 15:24 | disposition home or self-care (01) ==
LOC: ED 12:31
DX: J40 Bronchitis, not specified as acute or chronic (principal); Z20.822 Contact with and (suspected) exposure to COVID-19; Z88.0 Allergy status to penicillin